=== PATIENT | female | born 1970 | race Caucasian/White ===

== ENCOUNTER 2019-11-28 07:14 | Day surgery (SDC) | payer OTHER, SELFPAY ==
[~2019-11-28] VITALS: Ht 149.9 cm; Wt 59.0 kg
[2019-11-28] MEDS ORDERED: BUPIVACAINE /PF 0.25% 30 ML VIAL INJ ONE (07:15)
[2019-11-28] MEDS ORDERED: IOPAMIDOL 50 ML VIAL IV ONE (07:15)
[2019-11-28] MEDS ORDERED: LIDOCAINE 2%, 20 ML MDV INJ ONE (07:15)
[2019-11-28] MEDS ORDERED: methylPREDNISolone ACETATE 80 MG/ML IM ONE (07:15)
[2019-11-28] MEDS ORDERED: MIDAZOLAM HCL 5 MG/5 ML VIAL ONE (08:38)
[2019-11-28] MEDS ORDERED: DIPHENHYDRAMINE INJ 50 MG/ML VIAL ONE (08:39)
[2019-11-28 09:45] VITALS: BP_SYST 128
== END 2019-11-28 10:20 | disposition home or self-care (01) ==
LOC: SDS 07:14 → SMU 07:19 → SDS 10:20
PROVIDERS: ATTEND Internal Medicine
DX: M51.16 Intervertebral disc disorders with radiculopathy, lumbar region (principal); E03.9 Hypothyroidism, unspecified; J45.909 Unspecified asthma, uncomplicated; G89.4 Chronic pain syndrome; M47.26 Other spondylosis with radiculopathy, lumbar region; Z20.828 Contact with and (suspected) exposure to other viral communicable diseases
CPT/HCPCS: 62323; J1040; J1200; J2001; J2250; J3490; J7120; Q9967; U0003; 76000

== ENCOUNTER 2020-02-13 07:23 | Day surgery (SDC) | payer OTHER, SELFPAY ==
[~2020-02-13] VITALS: Ht 149.9 cm; Wt 59.0 kg
[2020-02-13] MEDS ORDERED: MIDAZOLAM HCL 5 MG/5 ML VIAL ONE (08:37)
[2020-02-13] MEDS ORDERED: DIPHENHYDRAMINE INJ 50 MG/ML VIAL ONE (08:38)
[2020-02-13 16:40] VITALS: BP_SYST 121
== END 2020-02-13 10:30 | disposition home or self-care (01) ==
LOC: SDS 07:23 → SMU 07:25 → SDS 10:30
PROVIDERS: ATTEND Internal Medicine
DX: M47.26 Other spondylosis with radiculopathy, lumbar region (principal); J45.909 Unspecified asthma, uncomplicated; E03.9 Hypothyroidism, unspecified; G89.4 Chronic pain syndrome; Z79.899 Other long term (current) drug therapy; Z20.828 Contact with and (suspected) exposure to other viral communicable diseases
CPT/HCPCS: 62323; J1200; J2250; U0003; 76000